=== PATIENT | female | born 1995 | race Caucasian/White ===

== ENCOUNTER → 2021-05-11 | Outpatient (CLI) | payer OTHER ==
[2016-04-08 18:15] VITALS: BP 139/70
[~2021-05-11] MED LIST: CIPR500T94 PO; ONDA4TAB7 PO
[2021-05-12 20:09] LABS: ANA INTERP Negative (.)
== END ==
LOC: LAB 14:06
PROVIDERS: ATTEND Nurse Practitioner Family
DX: G43.009 Migraine without aura, not intractable, without status migrainosus (principal)
CPT/HCPCS: 36415; 84443; 85651; 86038; 86140